=== PATIENT | female | born 1995 | race African-American/Black ===

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

== ENCOUNTER 2017-07-15 19:16 | Emergency (ER) | payer MEDICAID ==
[~2017-07-15] VITALS: Ht 162.6 cm; Wt 78.0 kg
[2017-07-15 19:16] VITALS: BP_SYST 107
== END 2017-07-15 20:30 | disposition left against medical advice (07) ==
LOC: SED 19:16
DX: R19.7 Diarrhea, unspecified (principal); R11.2 Nausea with vomiting, unspecified; Z53.21 Procedure and treatment not carried out due to patient leaving prior to being seen by health care provider